=== PATIENT | female | born 1980 | race Caucasian/White ===

== ENCOUNTER → 2019-02-22 | Outpatient (CLI) | payer OTHER ==
--- NOTE | 2019-02-23 09:03 | RAD ---
Cervical spine, 3 views, 02/22/2019: HISTORY: Pain There is moderate disc space narrowing at C5-6 with endplate sclerosis and moderate marginal spurring. There is slight retrolisthesis at this level, probably due to facet joint arthropathy. The other cervical disc spaces are well-maintained. There are mild degenerative changes involving scattered facet joints. No fracture is identified. The prevertebral soft tissues are unremarkable. IMPRESSION: 1. Slight retrolisthesis at C5-6. 2. Moderate degenerative disc disease at C5-6. Electronically signed by: Iam Ellison MD (02/23/2019 9:00 AM) [facility]
== END | disposition home or self-care (01) ==
LOC: DXRAD 17:19
PROVIDERS: ATTEND Family Medicine
DX: M50.322 Other cervical disc degeneration at C5-C6 level (principal); M48.02 Spinal stenosis, cervical region; M47.892 Other spondylosis, cervical region
CPT/HCPCS: 72040